=== PATIENT | female | born 1935 | race Caucasian/White ===

== ENCOUNTER → 2022-03-06 | Outpatient (CLI) | payer MEDICARE, BC ==
[2022-03-06 15:02] LABS: INR 0.9 (<1.2); Partial Thromboplastin Time 23.3 sec (22.0-30.0); Prothrombin Time 9.9 sec (9.0-12.0)
[2022-03-06 22:33] LABS: Basophils # (A) 0.06 X 10*3/uL (0.00-0.10); Basophils % (A) 0.7 %; Eosinophils # (A) 0.09 X 10*3/uL (0.04-0.35); HCT 38.7 % (37.2-46.3); HGB 12.2 g/dL (12.0-15.0); Immature Grans, Automated 0.3 %; Lymphocytes # (A) 2.33 X 10*3/uL (0.90-5.00); Lymphocytes % (A) 26.4 %; MCH 31.1 pg (27.0-32.0); MCHC 31.5 g/dL (32.0-37.0); MCV 98.7 fL (80.0-97.0); Mean Platelet Volume 9.9 fL (9.5-12.2); Monocytes % (A) 5.7 %; NRBC Per 100 WBC 0 /100 WBCS (0.0-0.0); Neutrophils # (A) 5.82 X 10*3/uL (1.80-7.70); Neutrophils % (A) 65.9 %; Platelet Count 306 X 10*3/uL (140-440); RBC 3.92 X 10*6/uL (4.10-5.20); RDW 13.6 % (11.5-14.5); WBC 8.83 X 10*3/uL (4.50-10.00)
[2022-03-06 22:45] LABS: African American GFR (CKD) 71.5 (60.0-200.0); Albumin 4.6 g/dL (3.8-4.9); Albumin/Globulin Ratio 1.8 (1.60-3.17); Anion Gap 15.2 mmol/L (10.00-18.00); BUN/Creat Ratio 20.97 Ratio (12.00-20.00); Blood Urea Nitrogen 17.8 mg/dL (9.0-27.0); Calcium 9.5 mg/dL (8.7-10.3); Carbon Dioxide 21.8 mmol/L (20.0-27.5); Globulin 2.5 g/dL (1.6-3.3); Non-African American GFR(CKD) 61.7 (60.0-200.0); Potassium 4.1 mmol/L (3.5-5.5); Total Bilirubin 0.3 mg/dL (0.30-1.20); Total Protein 7.1 g/dL (6.2-8.2)
[2022-03-06 23:02] LABS: Appearance,Urine Clear (Clear); Bilirubin,Urine Negative (Negative); Blood,Urine Negative (Negative); Color,Urine Yellow (Yellow); Ketones,Urine Trace mg/dL (Negative); Nitrite,Urine Negative (Negative); PH, Urine 5.5 (5.0-8.0); Specific Gravity,Urine 1.015 (1.001-1.030); Urobilinogen,Urine 0.2 (0.2,1.0)
[2022-03-06 23:11] LABS: Bacteria,Urine None Seen /HPF (None Seen)
== END | disposition home or self-care (01) ==
LOC: LABPAT 13:28
PROVIDERS: ATTEND Orthopaedic Surgery
DX: Z01.812 Encounter for preprocedural laboratory examination (principal); M16.11 Unilateral primary osteoarthritis, right hip; I49.1 Atrial premature depolarization; I21.4 Non-ST elevation (NSTEMI) myocardial infarction; R94.31 Abnormal electrocardiogram [ECG] [EKG]
CPT/HCPCS: 80053; 81001; 85025; 85610; 85730; 87070; 93005

== ENCOUNTER 2022-03-17 07:14 | Day surgery (SDC) | payer MEDICARE, BC ==
[~2022-03-17 07:14] MED LIST: ACETAMINOPHEN TAB 500 MG TAB PO PRN; GABAPENTIN 300 MG CAP PO PRN; MELOXICAM 7.5 MG TAB PO PRN; TRANEXAMIC ACID IN NACL,ISO-OS 1,000 MG in SALINE 1 100ML.BAG IVPB PRN
[2022-03-17] MEDS ORDERED: HYDROmorphone 0.5 MG/0.5 ML SYRINGE IVP PRN ×4 (07:30→09:14)
[2022-03-17] MEDS ORDERED: LIDOCAINE 1% (10MG/ML) FOR IV START INTRADERMA PRN (07:30)
[2022-03-17] MEDS ORDERED: ONDANSETRON 4 MG/2 ML VIAL IVP ONE (07:30)
[2022-03-17] MEDS ORDERED: DEXAMETHASONE SOD PHOSPHATE 4 MG/ML 1 ML VIAL IV ONE (07:30)
[2022-03-17] MEDS: LACTATED RINGERS 1,000 ML IV SCH (08:10)
[2022-03-17] MEDS ORDERED: MIDAZOLAM 2 MG/2 ML VIAL IVP ONE (08:15)
--- NOTE | 2022-03-17 08:23 | P.ANPRN ---
Procedure Note - Anesthesia - Nerve Block Performed Right David Single Date of Procedure: 03/17/22 Procedure Start Time: 08:15 Location of Patient: PreOp Indication: Acute Post-Operative Pain, Requested by Surgeon Sedation Type: Sedate with meaningful contact maintained Preparation: Sterile Prep Position: Supine Needle Types: Pajunk Needle Gauge: 18 Ultrasound used to visualize needle placement: Yes Ultrasound used to observe medication spread: Yes Injectate: 0.5% Ropivacaine (see comment for volume) (20mL) Blood Aspirated: No Pain Paresthesia on Injection Noted: No Resistance on Injection: Normal Image Stored and Saved: Yes Events: Uneventful and Well Tolerated
[2022-03-17] MEDS ORDERED: ONDANSETRON 4 MG/2 ML VIAL IVP PRN (09:14)
[2022-03-17] MEDS ORDERED: NALOXONE 0.4 MG/ML 1 ML VIAL IV PRN (09:14)
[2022-03-17] MEDS ORDERED: MAGNESIUM HYDROXIDE 2,400 MG/10 ML CUP PO PRN (09:14)
[2022-03-17] MEDS ORDERED: TRANEXAMIC ACID IN NACL,ISO-OS 1,000 MG/100 ML BAG ONE (09:16)
[2022-03-17] MEDS ORDERED: PROPOFOL 10 MG/ML 20 ML VIAL IV ONE (09:16)
[2022-03-17] MEDS ORDERED: LIDOCAINE 2% INJ 20 MG/ML (2 ML VIAL) ONE (09:16)
[2022-03-17] MEDS ORDERED: MIDAZOLAM 2 MG/2 ML VIAL ONE (09:16)
[2022-03-17] MEDS ORDERED: ROPIVACAINE 5 MG/ML 30 ML VIAL ONE (09:16)
[2022-03-17] MEDS ORDERED: ROPIVACAINE 5 MG/ML 30 ML VIAL MISCELLANE ONE ×2 (09:46→10:34)
[2022-03-17] MEDS ORDERED: LACTATED RINGERS 1,000 ML IV ONE (10:21)
--- NOTE | 2022-03-17 10:36 | P.OP ---
Date of Procedure: 03/17/22 Preoperative Diagnosis: Severe osteoarthritis right hip Postoperative Diagnosis: Severe osteoarthritis right Procedure(s) Performed: Right total hip arthroplasty with a direct anterior approach Implants: [employer] Polarstem standard size 2 [employer] R3, 3 hole hemispherical acetabular shell, 52 mm [employer] Reflection 6.5 mm cancellus screw, 20 mm 2, 25 mm [employer] R3, XLPE 20 acetabular liner [employer] Oxinium femoral head 36 m, +4 ABRYX Montage bone graft All components were press-fit. The articulation is Oxinium on polyethylene. Anesthesia: spinal Surgeon: Cliff Valdez Gravity Prospector #1: Janet Piper Estimated Blood Loss (ml): 200 Pathology: other (Femoral head) Condition: stable Disposition: PACU Indications for Procedure: After failure of conservative treatment we discussed the surgical and nonsurgical treatment options at length. Patient wishes to proceed with a total hip arthroplasty with a direct anterior approach. Complications specific to this procedure were discussed at length, including but not limited to infection, leg length discrepancy, dislocation, nerve injury, and fracture. Covid-19 was also discussed at length with the patient, and they are aware of the current policies and procedures. The patient was given the option of delaying surgery, but they elect to proceed knowing these risks. Patient is aware of all these complications and informed consent was obtained Operative Findings: The operative findings are consistent with severe osteoarthritis of the right hip Description of Procedure: The patient was seen and evaluated in the preoperative area and the consent was reviewed. The operative site was marked with a skin marker. The patient verified the procedure and operative site. A STEFFI block was placed by anesthesia in the preoperative area. The patient was then brought to the operating room and given preoperative antibiotics intravenously. 1 g of Tranexamic acid was also given intravenously. A spinal anesthetic was administered by the anesthesia department. The patient was then placed on the [place] table with the bony prominences well-padded. The hip area was then prepped with a ChloraPrep solution and draped in the usual sterile fashion. A universal timeout was then performed, which confirmed the patient's name, surgical site, ALLERGIES, and procedure being performed on the consent. Next the incision site was located at 1 cm distal and 4 cm lateral to the anterior superior iliac spine. The skin and subcutaneous tissues were sharply incised. Incision was carefully dissected down to the fascia overlying the tensor fascia dottie muscle. This fascia was then incised in line with the muscle fibers. Care was taken to stay laterally in order to avoid injuring the lateral femoral cutaneous nerve. Next, using blunt finger dissection, the tensor fascia dottie muscle was dissected off its investing fascia. The muscle was then carefully retracted laterally with a cobra retractor over the lateral neck of the femur. Next, the circumflex vessels were identified and cauterized using the Aquamantis device. The anterior hip capsule was then exposed. The capsule was then opened and an inverted T fashion. The retractors were then placed intracapsularly. The retractors were maintained intracapsular throughout the procedure. The proximal femur was then visualized. Fluoroscopic x-rays were then taken in order to evaluate the preoperative leg lengths. A small amount of traction was placed on the leg. The femoral neck was then osteotomized at the appropriate level above the lesser trochanter. A small wedge of bone was then removed from the remaining femoral head. Next, using a corkscrew the femoral head was removed from the acetabulum. On gross visual inspection, the femoral head had complete loss of articular cartilage and multiple periarticular osteophytes. The femoral head was then measured. Attention was then turned to the acetabulum. The acetabulum was exposed and any remaining labrum was excised. Sequential reaming of the acetabulum was performed using fluoroscopic guidance until there was a good bed of bleeding cancellus bone. When the appropriate size was reached, a trial was then placed. The position and fit of the trial was checked with fluoroscopy. The trial was then removed. Because of the patient's poor bone quality, decision was reached to use montage bone graft for additional fixation of the acetabulum. Then, using fluoroscopic guidance, the final implant was impacted at 20 of anteversion and 40 of abduction, and fully seated in the acetabulum. 3 screws were then placed in the acetabulum. Again fluoroscopy was used to check position of the screws. Next, the liner was then impacted, with a 20 elevated liner located in the anterior superior quadrant. Component locking was confirmed. Attention was then directed to the femur. With the aid of the [place] table, the femur was externally rotated to approximately 130, extended, and adducted under the opposite leg. A side hook was then placed under the proximal femur, and the side hook elevator was used to elevate the proximal femur while releasing the capsule. Retractors were then placed. A capsular release was performed, as well as a release of the conjoined tendon, which afforded excellent visualization of the proximal femur. Next, a box osteotome was used to lateralize the proximal femur. A handbag parts cutter was then used to locate the femoral canal. Sequential broaching was then performed with appropriate size which afforded excellent fixation in the proximal femur. A trial was then placed with appropriate head and neck, and the hip was gently reduced with the aid of the [place] table. Fluoroscopy was then used to check position of the components, as well as to evaluate the leg lengths and offset. The leg lengths and offset were measured as closely as possible to ensure stability of the hip. The hip was then gently dislocated and the trials were then removed. Final implants were then impacted and the hip was again reduced. Final fluoroscopic x-rays confirmed that the components were in anatomic position. The leg lengths and offset were measured and were found to coincide with the trial measurements. The hip was also taken through range of motion, and found to be stable. The hip was then copiously irrigated with antibiotic solution with pulsatile lavage. The hip was then irrigated with Irrisept solution. The soft tissues were then injected with a ropivacaine solution. A second dose of 1 g of Tranexamic acid was also given intravenously. The fascia was then closed with 2-0 strata fix suture. The subcutaneous tissue was closed with 3-0 Vicryl. The subcuticular tissue was closed with 3-0 strata fix suture. The skin was then closed with Exofin skin glue. After the glue and dried, and Optifoam silver impregnated dressing was applied. The patient was then transferred to the recovery room in stable condition. The hotel administrative assistant NAUN Sena was required due to the complexity of surgery, and the need for skilled tiler's assistant for positioning, draping, exposure, retraction, and closure of the wound.
--- NOTE | 2022-03-17 10:54 | FL ---
EXAMINATION TYPE: FL guidance operating room DATE OF EXAM: 03/17/2022 HISTORY: Fluoroscopy time Less than 60 seconds of fluoroscopy provided. IMPRESSION: 1. Fluoroscopy time.
--- NOTE | 2022-03-17 10:55 | XR ---
EXAMINATION TYPE: XR Hip Limited RT DATE OF EXAM: 03/17/2022 COMPARISON: NONE HISTORY: Postop TECHNIQUE: One view submitted. FINDINGS: There is postsurgical change in near anatomic alignment. There is soft tissue edema and emphysema. IMPRESSION: 1. Postoperative change. Appears in near-anatomic alignment.
--- NOTE | 2022-03-17 11:33 | XR ---
EXAMINATION TYPE: XR Hip Limited RT DATE OF EXAM: 03/17/2022 COMPARISON: NONE HISTORY: Postop TECHNIQUE: One view submitted. FINDINGS: There is postsurgical change in near anatomic alignment. There is soft tissue edema and emphysema. S urgical change involving the pelvis also incidentally noted. IMPRESSION: 1. Postoperative change. Appears in near-anatomic alignment.
[2022-03-17] MEDS: traMADol 50 MG TAB PO PRN ×2 (13:01→19:44)
[2022-03-17] MEDS: SODIUM CHLORIDE 0.9% 1,000 ML IV SCH (15:21)
[2022-03-17] MEDS: ASPIRIN 325 MG TAB PO SCH (19:43)
[2022-03-17] MEDS: SENNOSIDES-DOCUSATE SODIUM 1 EACH TAB PO SCH ×2 (19:43→19:46)
[2022-03-18] MEDS: SODIUM CHLORIDE 0.9% 1,000 ML IV SCH (01:33)
[2022-03-18] MEDS: traMADol 50 MG TAB PO PRN ×3 (01:42→13:45)
[2022-03-18 01:48] VITALS: PULSE 74
[2022-03-18] MEDS: LACTATED RINGERS 1,000 ML IV SCH (07:31)
[2022-03-18] MEDS: ASPIRIN 325 MG TAB PO SCH (07:36)
[2022-03-18 08:45] VITALS: BP 138/73; RESP 18; TEMP 97.8
[2022-03-18 10:41] LABS: Basophils # (A) 0.03 X 10*3/uL (0.00-0.10); Basophils % (A) 0.3 %; Eosinophils # (A) 0.02 X 10*3/uL (0.04-0.35); Eosinophils % (A) 0.2 %; HCT 30.2 % (37.2-46.3); HGB 9.4 g/dL (12.0-15.0); Immature Grans, Automated 0.3 %; Lymphocytes # (A) 1.05 X 10*3/uL (0.90-5.00); Lymphocytes % (A) 10.8 %; MCH 30.5 pg (27.0-32.0); MCHC 31.1 g/dL (32.0-37.0); MCV 98.1 fL (80.0-97.0); Mean Platelet Volume 9.9 fL (9.5-12.2); Monocytes # (A) 0.93 X 10*3/uL (0.20-1.00); Monocytes % (A) 9.6 %; NRBC Per 100 WBC 0 /100 WBCS (0.0-0.0); Neutrophils # (A) 7.65 X 10*3/uL (1.80-7.70); Neutrophils % (A) 78.8 %; Platelet Count 237 X 10*3/uL (140-440); RBC 3.08 X 10*6/uL (4.10-5.20); RDW 13.2 % (11.5-14.5); WBC 9.71 X 10*3/uL (4.50-10.00)
--- NOTE | 2022-03-18 11:21 | P.DS ---
Providers Expected date of discharge: 03/18/22 Attending physician: Cliff Valdez Consults: 03/17/22 09:14 Consult Physician Routine Consulting Provider: Dariela Martins Consult Reason/Comments: medical management Do you want consulting provider notified?: Yes Primary care physician: Washington Demarco - Discharge Diagnosis(es) (1) Primary localized osteoarthritis of right hip Current Visit: Yes Status: Acute (2) Status post total hip replacement, right Current Visit: Yes Status: Acute Hospital Course: This is a 86-year-old female with known history of degenerative arthritis of the right hip. The patient presents for evaluation. After discussion and consideration patient elects to proceed with total hip arthroplasty with direct anterior approach. The patient is seen preoperatively by primary care physician and cleared for surgery. Patient is admitted to [facility] on 03/17/2022 for total hip arthroplasty with direct anterior approach. The procedure is performed without complication or sequelae. The patient is doing well postoperatively. Labs and vital signs are stable on day of discharge. On day of discharge patient's hip incision is healing well. There is minimal erythema. There is no drainage noted at this time. There is minimal soft tissue swelling to the hip and thigh. Patient has full foot and ankle motion without difficulty or pain. Neurovascular status to the lower extremity is intact. Patient is discharged to home in good condition. Please see med rec for accurate list of home medications. Patient Condition at Discharge: Good Plan - Discharge Summary Discharge Rx Participant: Yes New Discharge Prescriptions: New Aspirin 325 mg PO BID #60 tab Sennosides [Senokot] 2 tab PO DAILY PRN #60 tablet PRN Reason: Constipation traMADol HCl [Ultram] 1 - 2 tab PO Q6H PRN #32 tab PRN Reason: Pain No Action Estradiol Cream [Estrace Cream 0.01%] 1 gm VAGINAL DIRECTED PRN PRN Reason: recurrent UTI Acetaminophen [Tylenol Extra Strength] 500 mg PO Q6H PRN PRN Reason: Pain Cholecalciferol [Vitamin D3 (25 Mcg = 1000 Iu)] 25 mcg PO DAILY Nitrofurantoin Monohyd/M-Cryst [Macrobid] 100 mg PO DAILY Multivit/Folic Acid/Vit K1 [One-A-Day Women's 50 Plus Tab] 1 each PO DAILY Losartan Potassium [Cozaar] 50 mg PO DAILY Loperamide HCl [Imodium A-D] 2 mg PO DIRECTED PRN PRN Reason: Diarrhea Glucosamine/MSM/Hyaluron Acid [Tflrlhjkylg-LRM-Dzxmcwcxuw Tab] 1 each PO DAILY Famotidine [Pepcid] 40 mg PO DAILY PRN PRN Reason: Heartburn Cranberry Fruit Extract [Cranberry] 500 mg PO DAILY Discharge Medication List Acetaminophen [Tylenol Extra Strength] 500 mg PO Q6H PRN 03/11/22 [History] Cholecalciferol [Vitamin D3 (25 Mcg = 1000 Iu)] 25 mcg PO DAILY 03/11/22 [History] Cranberry Fruit Extract [Cranberry] 500 mg PO DAILY 03/11/22 [History] Estradiol Cream [Estrace Cream 0.01%] 1 gm VAGINAL DIRECTED PRN 03/11/22 [History] Famotidine [Pepcid] 40 mg PO DAILY PRN 03/11/22 [History] Glucosamine/MSM/Hyaluron Acid [Teypxrjvfxz-VQO-Zpntgpfwnk Tab] 1 each PO DAILY 03/11/22 [History] Loperamide HCl [Imodium A-D] 2 mg PO DIRECTED PRN 03/11/22 [History] Losartan Potassium [Cozaar] 50 mg PO DAILY 03/11/22 [History] Multivit/Folic Acid/Vit K1 [One-A-Day Women's 50 Plus Tab] 1 each PO DAILY 03/11/22 [History] Nitrofurantoin Monohyd/M-Cryst [Macrobid] 100 mg PO DAILY 03/11/22 [History] Aspirin 325 mg PO BID #60 tab 03/17/22 [Rx] Sennosides [Senokot] 2 tab PO DAILY PRN #60 tablet 03/17/22 [Rx] traMADol HCl [Ultram] 1 - 2 tab PO Q6H PRN #32 tab 03/17/22 [Rx] Follow up Appointment(s)/Referral(s): Cliff Valdez DO [Doctor of Osteopathic Medicine] - 2 Weeks Activity/Diet/Wound Care/Special Instructions: Weightbearing as tolerated with walker. Leave dressing intact. Dressing may be removed by home care nurse or by patient in 7 days. Then change dressing twice daily until follow up. May shower with initial dressing intact and after removal. If dressing become saturated, please remove. Please take aspirin 325mg twice daily for 30 days to prevent blood clots. Recommend use of compression stockings daily until follow up to help prevent swelling and blood clots. May remove at night before sleeping. Please follow-up with [facility] in 2 weeks and call with any questions or concerns, .
[2022-03-18] MEDS ORDERED: LOSARTAN 50 MG TAB PO SCH (11:45)
[2022-03-18 12:55] VITALS: BMI 25.6
--- NOTE | 2022-03-18 17:45 | P.CONS ---
History of Present Illness - Reason for Consult Consult date: 03/18/22 Medical management Requesting physician: Cliff Valdez - Chief Complaint Hip surgery - History of Present Illness This is a pleasant 86-year-old patient who follows with Dr. Abner Morales. Chronic stable medical conditions include GERD, hypertension, osteoarthritis, chronic UTI for which she is admin tendons antibiotic IBS, leg cramps. Patient yesterday underwent right total hip arthroplasty by Dr. Cliff Valdez. This morning has some pain at the operative site. Did ambulate in the hallway. No nausea vomiting. Did eat some breakfast. No chest pain no shortness of breath. Patient's son and daughter the bedside. Review of systems: GEN.: Tired EYES: None HEENT: None NECK: None RESPIRATORY: None CARDIOVASCULAR: None GASTROINTESTINAL: None GENITOURINARY: None MUSCULOSKELETAL: Joint pain LYMPHATICS: None HEMATOLOGICAL: None PSYCHIATRY: None NEUROLOGICAL: None Past medical history to include: DVT-several years ago, GERD, hypertension, osteomyelitis, frequent UTIs therefore patient is on chronic antibiotic, IBS, leg cramps Social history: Lives alone. No smoking. Alcohol occasionally. Physical examination: VITAL SIGNS: 97.8, 74, 18, 1 38 x 73, 96% room air GENERAL: BMI 25.6, sitting up in a chair, awake, comfortable. EYES: Pupils equal. Conjunctiva normal. HEENT: External appearance of nose and ears normal, oral cavity grossly normal. NECK: JVD not raised; masses not palpable. HEART: First and second heart sounds are normal; no edema. LUNGS: Respiratory rate normal; clear to auscultation. ABDOMEN: Soft, nontender, liver spleen not palpable, no masses palpable. PSYCH: Alert and oriented x3; mood and affect normal. MUSCULOSKELETAL:No Clubbing/cyanosis;muscles-grossly intact. Evidence of OA NEUROLOGICAL: Cranial nerves grossly intact; no facial asymmetry, power and sensation grossly intact. LYMPHATICS: No lymph nodes palpable in the axilla and neck INVESTIGATIONS, reviewed in the clinical context: White count 9.70 globin 9.4 platelets 237 Blood work from 03/06/2022: White count 8.8 hemoglobin 12.2 progression 4.1 creatinine 0.8 Assessment and plan: -Right total hip arthroplasty. Aspirin for DVT prophylaxis. Pain control. -Primary osteomyelitis multiple joints Pain control when necessary -Essential hypertension Cozaar -Chronic recurrent UTI Patient takes Macrobid 100 mg daily for prophylaxis -GERD Pepcid when necessary -Acute postprocedure blood loss anemia, expected from surgery Ferrous sulfate 325 twice a day -Irritable bowel syndrome When necessary symptom control Care was discussed with the patient and the family the bedside. Questions answered. Patient should follow-up with her family doctor for discharge. Thank you Dr. Valdez Past Medical History Past Medical History: Deep Vein Thrombosis (DVT), GERD/Reflux, Hypertension, Osteoarthritis (OA) Additional Past Medical History / Comment(s): blood clot years ago-unsure if was DVT, hx. frequent UTI-currently on A/B once daily-started by PCP as precaution, IBS, gets frequent leg cramps History of Any Multi-Drug Resistant Organisms: None Reported Past Surgical History: Appendectomy, Breast Surgery, Cholecystectomy, Hy sterectomy, Orthopedic Surgery Past Anesthesia/Blood Transfusion Reactions: No Reported Reaction Past Psychological History: Anxiety Additional Psychological History / Comment(s): related to this surg. Smoking Status: Never smoker Past Alcohol Use History: Occasional Past Drug Use History: None Reported - Past Family History Daughter(s) Family Medical History: Cancer Additional Family Medical History / Comment(s): melanoma Medications and Allergies Home Medications Medication Instructions Recorded Confirmed Type Acetaminophen [Tylenol Extra 500 mg PO Q6H PRN 03/11/22 03/17/22 History Strength] Cholecalciferol [Vitamin D3 (25 25 mcg PO DAILY 03/11/22 03/11/22 History Mcg = 1000 Iu)] Cranberry Fruit Extract [Cranberry] 500 mg PO DAILY 03/11/22 03/11/22 History Estradiol Cream [Estrace Cream 1 gm VAGINAL DIRECTED PRN 03/11/22 03/17/22 History 0.01%] Famotidine [Pepcid] 40 mg PO DAILY PRN 03/11/22 03/11/22 History Glucosamine/MSM/Hyaluron Acid 1 each PO DAILY 03/11/22 03/11/22 History [Pkxqhlrsyzw-HHQ-Craihdtide Tab] Loperamide HCl [Imodium A-D] 2 mg PO DIRECTED PRN 03/11/22 03/11/22 History Losartan Potassium [Cozaar] 50 mg PO DAILY 03/11/22 03/17/22 History Multivit/Folic Acid/Vit K1 1 each PO DAILY 03/11/22 03/11/22 History [One-A-Day Women's 50 Plus Tab] Nitrofurantoin Monohyd/M-Cryst 100 mg PO DAILY 03/11/22 03/17/22 History [Macrobid] Aspirin 325 mg PO BID #60 tab 03/17/22 Rx Sennosides [Senokot] 2 tab PO DAILY PRN #60 tablet 03/17/22 Rx traMADol HCl [Ultram] 1 - 2 tab PO Q6H PRN #32 tab 03/17/22 Rx Ferrous Sulfate [Iron (65 MG 325 mg PO BID #60 tab 03/18/22 Rx Elemental)] Allergies Allergy/AdvReac Type Severity Reaction Status Date / Time No Known Allergies Allergy Verified 03/17/22 07:39 Physical Exam Vitals: Vital Signs Temp Pulse Resp BP Pulse Ox 03/18/22 09:51 18 03/18/22 08:41 97.8 F 74 18 138/73 96 03/18/22 01:47 97.5 F L 74 15 135/70 96 03/17/22 20:23 98 F 76 17 132/69 98 Intake and Output 03/18/22 03/18/22 03/18/22 06:59 14:59 22:59 Intake Total 500 Balance 500 Intake: Oral 500 Other: Voiding Method Toilet # Voids 1 Weight 59.5 kg Results CBC & Chem 7: 03/18/22 06:37 Labs: Abnormal Lab Results - Last 24 Hours (Table) 03/18/22 Range/Units 06:37 RBC 3.08 L (4.10-5.20) X 10*6/uL Hgb 9.4 L (12.0-15.0) g/dL Hct 30.2 L (37.2-46.3) % MCV 98.1 H (80.0-97.0) fL MCHC 31.1 L (32.0-37.0) g/dL Eosinophils # 0.02 L (0.04-0.35) X 10*3/uL
== END 2022-03-18 13:55 | disposition home health service (06) ==
LOC: OR 07:14 → EDSTATUS 10:00 → 4SSUR 10:51 → OR 03-18 13:55
PROVIDERS: ATTEND Orthopaedic Surgery
DX: M16.11 Unilateral primary osteoarthritis, right hip (principal); G89.18 Other acute postprocedural pain; I10 Essential (primary) hypertension; E78.5 Hyperlipidemia, unspecified; K21.9 Gastro-esophageal reflux disease without esophagitis; Z87.19 Personal history of other diseases of the digestive system; M50.90 Cervical disc disorder, unspecified, unspecified cervical region; M06.9 Rheumatoid arthritis, unspecified; Z87.01 Personal history of pneumonia (recurrent); Z87.448 Personal history of other diseases of urinary system; Z79.1 Long term (current) use of non-steroidal anti-inflammatories (NSAID); Z79.899 Other long term (current) drug therapy; Z90.49 Acquired absence of other specified parts of digestive tract; Z98.890 Other specified postprocedural states; M19.90 Unspecified osteoarthritis, unspecified site; Z87.440 Personal history of urinary (tract) infections; Z79.82 Long term (current) use of aspirin; M86.9 Osteomyelitis, unspecified; Z80.8 Family history of malignant neoplasm of other organs or systems
CPT/HCPCS: 27130; 97116; 97161; 97530; 97535; 97165; 64447; 76942; 85025; 88300; 73501; C1713; C1776; J2250; J1100; J0690 ×2; J2405; J2795; J2704; J2001; 86850; 86900; 86901